=== PATIENT | male | born 1995 | race Caucasian/White ===

== ENCOUNTER 2020-09-06 18:37 | Emergency (ER) | payer BC ==
[~2020-09-06] VITALS: Ht 167.6 cm; Wt 68.0 kg
[2020-09-06 18:37] VITALS: BP_SYST 123
[2020-09-06] MEDS ORDERED: AZITHROMYCIN 250 MG TABLET PO ONE (19:15)
[2020-09-06] MEDS ORDERED: cefTRIAXone 0.75 GM in LIDOCAINE 1%, 20 ML MDV 2.1 ML IM ONE (19:15)
[2020-09-06 19:34] LABS: BILIRUBIN,URINE NEGATIVE (NEGATIVE); BLOOD, URINE NEGATIVE (NEGATIVE); CLARITY/URINE CLEAR (CLEAR); COLOR,URINE YELLOW (YELLOW); GLUCOSE,URINE NEGATIVE (NEGATIVE); KETONES,URINE NEGATIVE (NEGATIVE); LEUKOCYTE ESTERASE ,URINE NEGATIVE (NEGATIVE); NITRITE, URINE NEGATIVE (NEGATIVE); PROTEIN URINE NEGATIVE (NEGATIVE); UROBILINOGEN,URINE 0.2 (0.2-1.0)
[2020-09-06 19:35] LABS: EOSINOPHILS # (AUTO) 0.1 K/uL (0.0-0.4); EOSINOPHILS % (AUTO) 0.8 % (0.0-4.0); HEMATOCRIT 44.4 % (36-54); HEMOGLOBIN 15.2 g/dL (14.0-18.0); LYMPHOCYTES # (AUTO) 2.6 K/uL (1.0-5.5); LYMPHOCYTES % (AUTO) 30.9 % (20.5-51.5); MEAN CORPUSCULAR HEMOGLOBIN 29 pg (27-31); MEAN CORPUSCULAR HGB CONC 34 % (32-36); MEAN CORPUSCULAR VOLUME 86 fL (79.0-98.0); MONOCYTES # (AUTO) 0.6 K/uL (0.0-1.0); MONOCYTES % (AUTO) 7.6 % (1.7-9.3); NEUTROPHILS # (AUTO) 5.1 K/uL (1.8-7.7); NEUTROPHILS % (AUTO) 60.7 % (40.0-70.0); PLATELET COUNT (AUTO) 213 K/uL (130-430); RED BLOOD CELL COUNT(AUTO) 5.17 MIL/uL (4.2-6.2); RED CELL DISTRIBUTION WIDTH 12.2 % (9.0-15.0); WHITE BLOOD COUNT (AUTO) 8.5 K/uL (4.8-10.8)
[2020-09-06 20:08] LABS: CALCIUM 8.9 mg/dL (8.4-11.0); CREATININE 1.16 mg/dL (0.55-1.30); POTASSIUM 3.8 mmol/L (3.5-5.1)
[2020-09-06 20:13] LABS: ALBUMIN 4.3 g/dL (3.4-4.8); TOTAL BILIRUBIN 0.5 mg/dL (0.0-1.0)
[2020-09-06 20:38] VITALS: BP_SYST 121
== END 2020-09-06 20:37 | disposition home or self-care (01) ==
LOC: SED 18:37
DX: R30.0 Dysuria (principal); R53.83 Other fatigue
CPT/HCPCS: 36415; 80053; 81003; 85025; 87491; 87591; 99283; J0696; J2001; Q0144

== ENCOUNTER 2020-11-20 20:02 | Emergency (ER) | payer BC ==
[~2020-11-20] VITALS: Ht 167.6 cm; Wt 68.0 kg
[2020-11-20 20:05] VITALS: BP_SYST 138
[2020-11-20 20:34] LABS: BILIRUBIN,URINE NEGATIVE (NEGATIVE); BLOOD, URINE NEGATIVE (NEGATIVE); CLARITY/URINE CLEAR (CLEAR); COLOR,URINE YELLOW (YELLOW); GLUCOSE,URINE NEGATIVE (NEGATIVE); KETONES,URINE NEGATIVE (NEGATIVE); LEUKOCYTE ESTERASE ,URINE NEGATIVE (NEGATIVE); NITRITE, URINE NEGATIVE (NEGATIVE); PROTEIN URINE NEGATIVE (NEGATIVE); UROBILINOGEN,URINE 0.2 (0.2-1.0)
[2020-11-20 20:40] LABS: BASOPHILS # (AUTO) 0.1 K/uL (0.0-0.2); BASOPHILS % (AUTO) 0.9 % (0.0-2.0); EOSINOPHILS # (AUTO) 0.1 K/uL (0.0-0.4); EOSINOPHILS % (AUTO) 0.9 % (0.0-4.0); HEMATOCRIT 41.8 % (36-54); HEMOGLOBIN 14.7 g/dL (14.0-18.0); LYMPHOCYTES % (AUTO) 31.1 % (20.5-51.5); MEAN CORPUSCULAR HEMOGLOBIN 30 pg (27-31); MEAN CORPUSCULAR HGB CONC 35 % (32-36); MEAN CORPUSCULAR VOLUME 85 fL (79.0-98.0); MONOCYTES # (AUTO) 0.7 K/uL (0.0-1.0); MONOCYTES % (AUTO) 7.5 % (1.7-9.3); NEUTROPHILS # (AUTO) 5.8 K/uL (1.8-7.7); NEUTROPHILS % (AUTO) 59.6 % (40.0-70.0); PLATELET COUNT (AUTO) 210 K/uL (130-430); RED BLOOD CELL COUNT(AUTO) 4.91 MIL/uL (4.2-6.2); RED CELL DISTRIBUTION WIDTH 11.9 % (9.0-15.0); WHITE BLOOD COUNT (AUTO) 9.8 K/uL (4.8-10.8)
[2020-11-20 20:59] LABS: ANION GAP 13 (5-15); CALCIUM 8.8 mg/dL (8.4-11.0); CHLORIDE 102 mmol/L (98-107); CREATININE 1.22 mg/dL (0.55-1.30); GLUCOSE 97 mg/dL (70-99); POTASSIUM 3.6 mmol/L (3.5-5.1); SODIUM SERUM 139 mmol/L (136-145); UREA NITROGEN, BLOOD 16 mg/dL (8-21)
[2020-11-20 21:01] LABS: GFR AFRICAN AMERICAN 92 mL/min (>90)
[2020-11-20 21:03] LABS: C-REACTIVE PROTEIN QUANT < 0.2 mg/dL (0-0.5)
[2020-11-20 21:05] LABS: ALANINE AMINOTRANSFERASE 20 U/L (12-78); ALBUMIN 4.2 g/dL (3.4-4.8); AMYLASE 84 U/L (0-100); ASPARTATE AMINOTRANSFERASE 15 U/L (10-37); LIPASE 86 U/L (73-393); TOTAL BILIRUBIN 1.1 mg/dL (0.0-1.0)
[2020-11-20] MEDS ORDERED: IBUP-1971 PO (21:16)
[2020-11-20] MEDS ORDERED: HYDR-3917 PO (21:16)
[2020-11-20 21:21] VITALS: BP_SYST 138
[2020-11-20 21:24] LABS: PROTHROMBIN TIME 10.5 SECS (9.5-12.5)
== END 2020-11-20 21:21 | disposition home or self-care (01) ==
LOC: SED 20:02
DX: R10.13 Epigastric pain (principal); R19.7 Diarrhea, unspecified
CPT/HCPCS: 36415; 76376; 80053; 81003; 82150; 83605; 83690; 85025; 85610-TC; 85730-TC; 86140; 99284

== ENCOUNTER 2020-12-04 19:25 | Emergency (ER) | payer BC ==
[~2020-12-04] VITALS: Ht 170.2 cm; Wt 65.8 kg
[~2020-12-04 19:25] MED LIST: HYDR-3917 PO; IBUP-1971 PO
[2020-12-04 19:28] VITALS: BP_SYST 138
[2020-12-04 23:21] VITALS: BP_SYST 138
== END 2020-12-04 23:21 | disposition home or self-care (01) ==
LOC: SED 19:25
DX: R20.2 Paresthesia of skin (principal); M79.642 Pain in left hand; Z79.899 Other long term (current) drug therapy
CPT/HCPCS: 99283

== ENCOUNTER 2022-06-19 09:40 | Emergency (ER) | payer SELFPAY ==
[~2022-06-19] VITALS: Ht 167.6 cm; Wt 61.2 kg
[2022-06-19 09:47] VITALS: BP_SYST 129
--- NOTE | 2022-06-19 09:49 | NUR ---
Placed in room 06 . Placed on door to door salesperson, blood pressure machine and pulse oximeter. To gown for exam. Side rails up. Report given to JOSE RAMON MOHAN.
--- NOTE | 2022-06-19 09:54 | NUR ---
Patient arrived to bed for c/o abdominal pain, runny stool for one week and a half. Patient had mentioned that he has irritable bowel syndrome in the past. Patient has taken medication prior to "get rid of medication." Patient denies PMH. Patient's family has history of colitis. Patient has prior c/o migraines and MRI ordered outpatient. Patient had pain in lower neck. Dr. Stephens at bedside to see patient.
[2022-06-19] MEDS ORDERED: NACL 0.9% 1,000 ML IV ONE (10:00)
[2022-06-19] MEDS ORDERED: DIPHENHYDRAMINE HCL 25 MG CAPSULE PO ONE (10:00)
[2022-06-19] MEDS ORDERED: METOCLOPRAMIDE HCL 10 MG/2 ML VIAL IVP ONE (10:00)
[2022-06-19] MEDS ORDERED: DEXAMETHASONE SOD PHOSPHATE 10 MG/ML VIAL IVP ONE (10:00)
[2022-06-19] MEDS ORDERED: KETOROLAC TROMETHAMINE 30 MG VIAL IVP ONE (10:00)
[2022-06-19 10:06] LABS: BASOPHILS % (AUTO) 0.4 % (0.0-2.0); EOSINOPHILS # (AUTO) 0.1 K/uL (0.0-0.4); EOSINOPHILS % (AUTO) 0.8 % (0.0-4.0); HEMATOCRIT 45.1 % (36-54); HEMOGLOBIN 15.4 g/dL (14.0-18.0); LYMPHOCYTES % (AUTO) 18.6 % (20.5-51.5); MEAN CORPUSCULAR HEMOGLOBIN 30 pg (27-31); MEAN CORPUSCULAR HGB CONC 34 % (32-36); MEAN CORPUSCULAR VOLUME 86 fL (79.0-98.0); MONOCYTES # (AUTO) 0.7 K/uL (0.0-1.0); MONOCYTES % (AUTO) 6.3 % (1.7-9.3); NEUTROPHILS # (AUTO) 7.8 K/uL (1.8-7.7); NEUTROPHILS % (AUTO) 73.9 % (40.0-70.0); PLATELET COUNT (AUTO) 239 K/uL (130-430); RED BLOOD CELL COUNT(AUTO) 5.22 MIL/uL (4.2-6.2); RED CELL DISTRIBUTION WIDTH 12.4 % (9.0-15.0); WHITE BLOOD COUNT (AUTO) 10.6 K/uL (4.8-10.8)
[2022-06-19 10:19] LABS: CALCIUM 9.4 mg/dL (8.4-11.0); CREATININE 0.97 mg/dL (0.55-1.30)
[2022-06-19 10:23] LABS: ALBUMIN 4.4 g/dL (3.4-4.8); TOTAL BILIRUBIN 0.6 mg/dL (0.0-1.0)
[2022-06-19 10:24] LABS: BILIRUBIN,URINE NEGATIVE (NEGATIVE); BLOOD, URINE NEGATIVE (NEGATIVE); CLARITY/URINE OTHER (CLEAR); COLOR,URINE YELLOW (YELLOW); GLUCOSE,URINE NEGATIVE (NEGATIVE); KETONES,URINE NEGATIVE (NEGATIVE); LEUKOCYTE ESTERASE ,URINE NEGATIVE (NEGATIVE); NITRITE, URINE NEGATIVE (NEGATIVE); PH,URINE 6.5 (5.0-8.0); PROTEIN URINE NEGATIVE (NEGATIVE); UROBILINOGEN,URINE 0.2 (0.2-1.0)
[2022-06-19] MEDS ORDERED: ONDA-8 TL (12:41)
[2022-06-19] MEDS ORDERED: CIPR500T5 PO (12:41)
[2022-06-19] MEDS ORDERED: CIPROFLOXACIN HCL 500 MG TABLET PO ONE (12:45)
[2022-06-19 13:24] VITALS: BP_SYST 136
--- NOTE | 2022-06-19 13:59 | NUR ---
Patient given written and verbal discharge instructions and verbalizes understanding. ER MD discussed with patient the results and treatment provided. Patient in stable condition. ID arm band removed. IV catheter removed intact and dressing applied, no active bleeding. Rx of cipro given. Patient educated on pain management and to follow up with PMD. Medication side effects sheets given. Patient ambulatory with steady gait.
== END 2022-06-19 13:59 | disposition home or self-care (01) ==
LOC: SED 09:40
DX: R10.32 Left lower quadrant pain (principal); K58.9 Irritable bowel syndrome, unspecified; R16.0 Hepatomegaly, not elsewhere classified; R19.5 Other fecal abnormalities; R51.9 Headache, unspecified; R11.0 Nausea; Z79.899 Other long term (current) drug therapy
CPT/HCPCS: 99285; 74176; 96374; 96375; 96361; 80053; 83690; 85025; 87045; 87230; 89055; 36415; 76376; 82272; 87177; 81003; Q0163; J1100; J1885; J2765; J7030

== ENCOUNTER 2022-07-28 21:00 | Emergency (ER) | payer SELFPAY ==
[~2022-07-28] VITALS: Ht 167.6 cm; Wt 63.5 kg
[~2022-07-28 21:00] MED LIST changes: +CIPR500T5 PO; +ONDA-8 TL
[2022-07-28 21:06] VITALS: BP_SYST 151
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
[2022-07-28] MEDS ORDERED: KETOROLAC TROMETHAMINE 60 MG/2 ML VIAL IM ONE (21:30)
[2022-07-28] MEDS ORDERED: guaiFENesin/DEXTROMETHORPHAN 10 ML UDC PO ONE (21:30)
--- NOTE | 2022-07-28 21:39 | NUR ---
COVID/INFLUENZA SWAB COLLECTED AND SENT TO LAB.
[2022-07-28 21:57] LABS: BASOPHILS # (AUTO) 0.1 K/uL (0.0-0.2); BASOPHILS % (AUTO) 0.7 % (0.0-2.0); EOSINOPHILS # (AUTO) 0.2 K/uL (0.0-0.4); EOSINOPHILS % (AUTO) 1.6 % (0.0-4.0); HEMATOCRIT 41.8 % (36-54); HEMOGLOBIN 14.3 g/dL (14.0-18.0); LYMPHOCYTES # (AUTO) 2.7 K/uL (1.0-5.5); LYMPHOCYTES % (AUTO) 24.8 % (20.5-51.5); MEAN CORPUSCULAR HEMOGLOBIN 30 pg (27-31); MEAN CORPUSCULAR HGB CONC 34 % (32-36); MEAN CORPUSCULAR VOLUME 87 fL (79.0-98.0); MONOCYTES # (AUTO) 0.7 K/uL (0.0-1.0); MONOCYTES % (AUTO) 6.6 % (1.7-9.3); NEUTROPHILS # (AUTO) 7.3 K/uL (1.8-7.7); NEUTROPHILS % (AUTO) 66.3 % (40.0-70.0); PLATELET COUNT (AUTO) 237 K/uL (130-430); RED BLOOD CELL COUNT(AUTO) 4.83 MIL/uL (4.2-6.2); RED CELL DISTRIBUTION WIDTH 12.2 % (9.0-15.0); WHITE BLOOD COUNT (AUTO) 11.1 K/uL (4.8-10.8)
[2022-07-28 22:02] LABS: ANION GAP 9 (5-15); CALCIUM 8.9 mg/dL (8.4-11.0); CHLORIDE 100 mmol/L (98-107); CREATININE 1.11 mg/dL (0.55-1.30); GLUCOSE 113 mg/dL (70-99); UREA NITROGEN, BLOOD 13 mg/dL (8-21)
[2022-07-28 22:03] LABS: GFR AFRICAN AMERICAN 101 mL/min (>90)
[2022-07-28 22:10] LABS: ALANINE AMINOTRANSFERASE 18 U/L (12-78); ASPARTATE AMINOTRANSFERASE 12 U/L (10-37); TOTAL BILIRUBIN 0.6 mg/dL (0.0-1.0)
[2022-07-28] MEDS ORDERED: IBUP-1971 PO (22:24)
[2022-07-28] MEDS ORDERED: BENZ100C92 PO (22:24)
--- NOTE | 2022-07-28 22:40 | NUR ---
Patient given written and verbal discharge instructions and verbalizes understanding. ER MD discussed with patient the results and treatment provided. Patient in stable condition. ID arm band removed. Rx of benzonatate and ibuprofen given. Patient educated on pain management and to follow up with PMD. Pain Scale 6/10.Opportunity for questions provided and answered.
== END 2022-07-28 22:40 | disposition home or self-care (01) ==
LOC: SED 21:00
DX: J06.9 Acute upper respiratory infection, unspecified (principal); J40 Bronchitis, not specified as acute or chronic; R07.9 Chest pain, unspecified; R05.9 Cough, unspecified; Z79.899 Other long term (current) drug therapy; Z20.822 Contact with and (suspected) exposure to COVID-19
CPT/HCPCS: 99285; 71045; 87426; 80053; 85025; 84484; 36415; 93005; 96372; 87804 ×2; J1885

== ENCOUNTER 2024-01-27 18:55 | Emergency (ER) | payer OTHER ==
[~2024-01-27] VITALS: Ht 167.6 cm; Wt 68.0 kg
[~2024-01-27 18:55] MED LIST changes: +BENZ100C92 PO
[2024-01-27 19:14] VITALS: BP_SYST 137; PULSE 85; RESP 19; TEMP 97.7; O2SAT 97
[2024-01-27 19:45] VITALS: BP_SYST 137; PULSE 85; RESP 19; TEMP 97.7; O2SAT 97
== END 2024-01-27 19:45 | disposition home or self-care (01) ==
LOC: SED 18:55
DX: R07.89 Other chest pain (principal); F41.9 Anxiety disorder, unspecified; G43.909 Migraine, unspecified, not intractable, without status migrainosus; Z79.899 Other long term (current) drug therapy; Z79.2 Long term (current) use of antibiotics
CPT/HCPCS: 93005; 99281